=== PATIENT | male | born 1955 | race Asian ===

== ENCOUNTER 2017-05-11 05:23 | Inpatient (IN) | payer OTHER ==
[2017-05-11] VITALS (19 sets, daily range): BP systolic 118–170; BP diastolic 74–100
[~2017-05-11] VITALS: Ht 157.5 cm; Wt 62.6 kg
[2017-05-11] MEDS ORDERED: DONEPEZIL HCL10 M2 ORAL (06:22)
[2017-05-11] MEDS ORDERED: ASPIRIN81 MG ORAL (06:22)
[2017-05-11] MEDS ORDERED: ATORVASTATIN CA20 MG ORAL (06:22)
[2017-05-11] MEDS ORDERED: NAMENDA5 MG ORAL (06:22)
[2017-05-11] MEDS ORDERED: ceFAZolin sod 1 GM in NS 55 ML IVPB ONE (07:00)
[2017-05-11] MEDS ORDERED: Zemuron 50mg/5ml Inj IV ONE (07:30)
[2017-05-11] MEDS ORDERED: ProvayBlue 5mg/ml 10ml amp INJ ONE (07:30)
[2017-05-11] MEDS ORDERED: fentaNYL 100 mcg/2 mL IV ONE (07:30)
[2017-05-11] MEDS ORDERED: Propofol 200mg/20ml IV ONE (07:30)
[2017-05-11] MEDS ORDERED: LR 1000ml ONE (07:30)
[2017-05-11] MEDS ORDERED: Midazolam 2mg/2ml Inj ONE (07:30)
[2017-05-11] MEDS ORDERED: Bupivacaine 0.5% Inj 30 ml vial INJ ONE (07:31)
[2017-05-11] MEDS ORDERED: Surgicel 4in x 8in TOPIC ONE (07:31)
--- NOTE | 2017-05-11 08:10 | Pre-Procedure Note/Attestation ---
Pre-Procedure Note/Attestation Complete Prior to Procedure Planned Procedure: not applicable Procedure Narrative: Laparoscopic radical prostatectomy Indications for Procedure Pre-Operative Diagnosis: prostate cancer Attestation I attest that I discussed the nature of the procedure; its benefits; risks and complications; and alternatives (and the risks and benefits of such alternatives ), prior to the procedure, with the patient (or the patient's legal customer operations representative). I attest that, if there was a reasonable possibility of needing a blood transfusion, the patient (or the patient's legal customer operations representative) was given the [facility] standardized written summary, pursuant to the Roger [place] Blood Safety Act ([place] Health and Safety Code # 1645, as amended). I attest that I re-evaluated the patient just prior to the surgery and that there has been no change in the patient's H&P, except as documented below: Toi Desai MD May 11, 2017 08:10
[2017-05-11] MEDS ORDERED: NS Irrig 1000ml IRRIG ONE (08:22)
--- NOTE | 2017-05-11 09:12 | Anethesia Preoperative Eval ---
Anesthesia Pre-op PMH/ROS General Date of Evaluation: May 11, 2017 Time of Evaluation: 07:00 Anesthesiologist: [email or web address] ASA Score: ASA 2 Mallampati Score Class I : Soft palate, uvula, fauces, pillars visible Class II: Soft palate, uvula, fauces visible Class III: Soft palate, base of uvula visible Class IV: Only hard plate visible Mallampati Classification: Class I Allergies: Coded Allergies: No Known Allergies (Unverified , 05/10/17) Anesthesia Pre-op Phys. Exam Physician Exam Last Vital Signs Date Time Temp Pulse Resp B/P (MAP) Pulse Ox O2 Delivery O2 Flow Rate FiO2 05/11/17 06:08 97.6 68 18 138/87 98 Room Air Airway Exam Mallampati Score: Class I Jairo Hameed MD May 11, 2017 09:12
[2017-05-11] MEDS ORDERED: Hydromorphone 0.5mg/0.5ml inj IVP PRN ×3 (09:15→17:30)
[2017-05-11] MEDS ORDERED: fentaNYL 100 mcg/2 mL IV PRN (09:15)
--- NOTE | 2017-05-11 10:06 | Brief Operative Note ---
Immediate Post Operative Note Operative Note Pre-op Diagnosis: prostate cancer Procedure: Laparoscopic Radical Prostatectomy Post-op Diagnosis: same Post-op Diagnosis: same as pre-op Surgeon: Dane desai Mounter Automatic: Syed Ozuna Anesthesia: general Specimen: yes Complications: none Condition: stable Fluids: 500 Estimated Blood Loss: minimal Implant(s) used?: No Toi Desai MD May 11, 2017 10:06
[2017-05-11] MEDS ORDERED: Norco 5mg/325mg tab ORAL PRN (10:15)
[2017-05-11] MEDS ORDERED: HYDROmorphone 1mg/ml Carpuject IVP PRN (10:15)
[2017-05-11] MEDS ORDERED: Ketorolac 30mg Inj IM PRN ×2 (10:15→17:30)
--- NOTE | 2017-05-11 10:36 | Immediate Post-Op Evaluation ---
Immediate Post-Op Evalulation Immediate Post-Op Evalulation Procedure: lap prostatecctomy Date of Evaluation: May 11, 2017 Time of Evaluation: 10:36 Nausea: No Vomiting: No Given Within 1 Hr of Incision: Yes Jairo Hameed MD May 11, 2017 10:36
[2017-05-11 11:37] LABS: BASOPHILS % (AUTO) 0.7 % (0.0-2.0); EOSINOPHILS % (AUTO) 0.5 % (0.0-3.0); MEAN CORPUSCULAR HGB CONC 33.3 G/DL (32.0-36.0); MEAN CORPUSCULAR VOLUME 93 FL (80-99); MEAN PLATELET VOLUME 6.6 FL (6.5-10.1); MONOCYTES % (AUTO) 4.5 % (1.0-10.0); NEUTROPHILS % (AUTO) 75.4 % (45.0-75.0); PLATELET COUNT 323 K/UL (150-450); RED BLOOD COUNT 5.09 M/UL (4.70-6.10); RED CELL DISTRIBUTION WIDTH 12.1 % (11.6-14.8); WHITE BLOOD COUNT 17.5 K/UL (4.8-10.8)
[2017-05-11 11:41] LABS: ANION GAP 7 mmol/L (5-15); CALCIUM 8.6 MG/DL (8.5-10.1); CARBON DIOXIDE 29 MMOL/L (21-32); CHLORIDE 106 MMOL/L (98-107); GLOMERULAR FILTRATION RATE > 60 mL/min (>60); POTASSIUM 3.6 MMOL/L (3.5-5.1); SODIUM 142 MMOL/L (136-145)
--- NOTE | 2017-05-11 15:00 | Operative Note - Dictated ---
DATE OF OPERATION: 05/11/2017 PREOPERATIVE DIAGNOSIS: Prostate cancer. POSTOPERATIVE DIAGNOSIS: Prostate cancer. OPERATION: Laparoscopic radical retropubic prostatectomy. SURGEON: Toi Desai M.D. CHASSIS INSPECTOR: Syed Ozuna M.D. FINDINGS: Enlarged prostate with prostate cancer. INDICATION FOR SURGERY: The patient was diagnosed with prostate cancer on prostate needle biopsy. Treatment options were explained to him in great length including all potential complications. He signed a consent. DESCRIPTION OF PROCEDURE: He was brought to the operating room, placed in the supine position, prepped and draped in standard fashion under general anesthesia. Veress needle was placed at the umbilicus. Pneumoperitoneum was created to 15 mmHg. Five trocars, two 12s and three 5s were placed in the standard position. Dissection started behind the bladder mobilizing seminal vesicles and vas deferens. fascia was opened. After that dissection was carried anteriorly bladder from the pubis. Using Harmonic Scalpel, endopelvic fascia was opened and using Endo-CHERRY dorsal venous complex was transected. After that blood neck sparing technique was used to separate the bladder from the prostate preserving bladder neck and prostate was removed preserving both neurovascular bundles on both sides. After the prostate was removed, anastomosis was created between the urethra and the bladder using running 2-0 Monocryl suture double-armed and watertight anastomosis was created and bladder was irrigated. No evidence of leak. Betancourt catheter was left indwelling with 20 mL in the balloon. Estimated blood loss was approximately 50 mL. Prostate specimen was removed for pathologic examination. The FloSeal was placed around the anastomosis and the lateral bundles. Sponge count and instrument count was correct. The trocars and specimen was removed and wound was closed in multiple layers. Marisela for the skin. The patient tolerated procedure well. Toi Desai M.D. DR: Monica JOB#: [id number] CC:
--- NOTE | 2017-05-11 15:02 | History and Physical ---
History of Present Illness General Date patient seen: May 11, 2017 Reason for Hospitalization: prostectomy Present Illness HPI 61 year old male with hx of prostate Cancer, depression, dementia, admitted for Laparoscopic Radical Prostatectomy. Pt tolerated the procedure well and admitted to floor for post op care. Allergies: Coded Allergies: No Known Allergies (Unverified , 05/10/17) Medication History Scheduled Aspirin* (Aspirin*), 81 MG ORAL DAILY, (Reported) Atorvastatin Calcium* (Atorvastatin Calcium*), 20 MG ORAL BEDTIME, (Reported) Donepezil Hcl* (Donepezil Hcl*), 10 MG ORAL DAILY, (Reported) Memantine Hcl* (Namenda*), 5 MG ORAL DAILY, (Reported) Patient History Healthcare decision maker JIM GOLDEN - Resuscitation status Full Code Advanced Directive on File No Past Medical/Surgical History Past Medical/Surgical History: (1) Prostate cancer (2) Depression (3) Dementia (4) prostate can Review of Systems All Other Systems: negative except mentioned in HPI Physical Exam General Appearance: WD/WN Lines, tubes and drains: peripheral HEENT: normocephalic, atraumatic Neck: non-tender, supple Respiratory/Chest: chest wall non-tender, lungs clear Breasts: no masses Cardiovascular/Chest: normal peripheral pulses, regular rhythm, regularly irregular, no JVD Last 24 Hour Vital Signs Date Time Temp Pulse Resp B/P (MAP) Pulse Ox O2 Delivery O2 Flow Rate FiO2 05/11/17 13:30 97.0 87 19 130/81 100 Nasal Cannula 3.0 05/11/17 12:50 Simple Mask 6.0 40 05/11/17 12:30 98.1 86 20 143/89 100 Nasal Cannula 3.0 05/11/17 12:25 86 19 143/87 100 Nasal Cannula 3.0 05/11/17 12:15 88 21 159/97 100 Nasal Cannula 3.0 05/11/17 12:10 91 19 164/91 100 Simple Mask 6.0 05/11/17 12:05 89 17 166/94 100 Simple Mask 6.0 05/11/17 11:50 86 18 170/99 100 Simple Mask 6.0 05/11/17 11:45 99 05/11/17 11:35 88 12 146/96 100 Mechanical Ventilator 50 05/11/17 11:20 95 28 160/100 100 Mechanical Ventilator 50 05/11/17 11:05 84 26 157/93 100 Mechanical Ventilator 50 05/11/17 10:55 83 19 155/95 100 Mechanical Ventilator 50 05/11/17 10:45 82 21 159/92 100 Mechanical Ventilator 50 05/11/17 10:40 83 17 50 05/11/17 10:40 80 20 159/91 100 Mechanical Ventilator 50 05/11/17 10:35 97.1 78 20 147/87 100 Mechanical Ventilator 50 05/11/17 10:35 50 05/11/17 06:08 97.6 68 18 138/87 98 Room Air Intake and Output 05/11/17 05/12/17 19:00 07:00 Intake Total 700 ml Output Total 1720 ml Balance -1020 ml Intake IV Total 700 ml Output Urine Total 1700 ml Estimated Blood Loss 20 ml Laboratory Tests Test 05/11/17 11:20 White Blood Count 17.5 K/UL (4.8-10.8) H Red Blood Count 5.09 M/UL (4.70-6.10) Hemoglobin 15.8 G/DL (14.2-18.0) Hematocrit 47.5 % (42.0-52.0) Mean Corpuscular Volume 93 FL (80-99) Mean Corpuscular Hemoglobin 31.0 PG (27.0-31.0) Mean Corpuscular Hemoglobin Concent 33.3 G/DL (32.0-36.0) Red Cell Distribution Width 12.1 % (11.6-14.8) Platelet Count 323 K/UL (150-450) Mean Platelet Volume 6.6 FL (6.5-10.1) Neutrophils (%) (Auto) 75.4 % (45.0-75.0) H Lymphocytes (%) (Auto) 19.0 % (20.0-45.0) L Monocytes (%) (Auto) 4.5 % (1.0-10.0) Eosinophils (%) (Auto) 0.5 % (0.0-3.0) Basophils (%) (Auto) 0.7 % (0.0-2.0) Sodium Level 142 MMOL/L (136-145) Potassium Level 3.6 MMOL/L (3.5-5.1) Chloride Level 106 MMOL/L (98-107) Carbon Dioxide Level 29 MMOL/L (21-32) Anion Gap 7 mmol/L (5-15) Blood Urea Nitrogen 17 mg/dL (7-18) Creatinine 1.0 MG/DL (0.55-1.30) Estimat Glomerular Filtration Rate > 60 mL/min (>60) Glucose Level 199 MG/DL (74-106) H Calcium Level 8.6 MG/DL (8.5-10.1) Height (Feet): 5 Height (Inches): 2.00 Weight (Pounds): 138 Medications Current Medications Medications (Trade) Dose Ordered Sig/Crystal Route PRN Reason Start Time Stop Time Status Last Admin Dose Admin Acetaminophen (Tylenol) 650 mg Q4H PRN ORAL FEVER,T>101 05/11/17 10:15 06/10/17 10:14 Acetaminophen (Tylenol) 650 mg Q6H PRN ORAL Mild Pain (Pain Scale 1-3) 05/11/17 10:15 06/10/17 10:14 Acetaminophen/ Hydrocodone Bitart ([place] 5/325) 1 tab Q4H PRN ORAL Moderate Pain (Pain Scale 4-6) 05/11/17 10:15 05/18/17 10:14 Cefazolin Sodium 1 gm/Dextrose 55 ml @ 110 mls/hr Q8H IV 05/11/17 15:00 05/11/17 23:29 Dextrose/ Electrolytes 1,000 ml @ 100 mls/hr Q10H IV 05/11/17 14:30 06/10/17 14:29 Hydromorphone HCl (Dilaudid) 1 mg Q3H PRN IVP pain score 4-6 05/11/17 10:15 05/18/17 10:14 Ketorolac Tromethamine (Toradol 30mg) 30 mg Q6H PRN IM For Pain 05/11/17 10:15 05/16/17 10:14 Ondansetron HCl (Zofran) 4 mg Q6H PRN IVP Nausea & Vomiting 05/11/17 10:15 06/10/17 10:14 Temazepam (Restoril) 7.5 mg DAILYPRN PRN ORAL Insomnia 05/11/17 10:15 05/18/17 10:14 Assessment/Plan Problem List: (1) S/P prostatectomy ICD Codes: Z90.79 - Acquired absence of other genital organ(s) SNOMED: 29993281, 76820950, 036901126 (2) Prostate cancer ICD Codes: C61 - Malignant neoplasm of prostate SNOMED: 886488199 (3) Leukocytosis ICD Codes: D72.829 - Elevated white blood cell count, unspecified SNOMED: 556770971, 867764528 (4) Depression ICD Codes: F32.9 - Major depressive disorder, single episode, unspecified SNOMED: 68987243 (5) Dementia ICD Codes: F03.90 - Unspecified dementia without behavioral disturbance SNOMED: 75832282 Assessment/Plan post op care symptomatic treatment iv fluids advance diet as tolerated ERLIN PARRA May 11, 2017 15:02
[2017-05-11] MEDS: D5 1/2NS w/KCl 20mEq 1,000 ML IV SCH (15:16)
[2017-05-11] MEDS: ceFAZolin sod 1 GM in D5W 55 ML IV SCH ×2 (15:52→22:50)
[2017-05-12 04:00] VITALS: BP 124/79
[2017-05-12] MEDS: D5 1/2NS w/KCl 20mEq 1,000 ML IV SCH ×3 (04:56→23:24)
[2017-05-12] MEDS ORDERED: Sterile Water Irrig 1000ml IRRIG ONE (07:30)
[2017-05-12] MEDS ORDERED: NS Irrig 1000ml ONE (07:30)
[2017-05-12] MEDS ORDERED: LR 1000ml ONE (07:30)
[2017-05-12 07:58] LABS: ANION GAP 4 mmol/L (5-15); CALCIUM 8.4 MG/DL (8.5-10.1); CARBON DIOXIDE 32 MMOL/L (21-32); CHLORIDE 106 MMOL/L (98-107); CREATININE 0.8 MG/DL (0.55-1.30); GLOMERULAR FILTRATION RATE > 60 mL/min (>60); POTASSIUM 3.6 MMOL/L (3.5-5.1); SODIUM 142 MMOL/L (136-145)
[2017-05-12 08:00] LABS: BASOPHILS % (AUTO) 0.8 % (0.0-2.0); EOSINOPHILS % (AUTO) 0.2 % (0.0-3.0); LYMPHOCYTES % (AUTO) 9.4 % (20.0-45.0); MEAN CORPUSCULAR HEMOGLOBIN 31.6 PG (27.0-31.0); MEAN CORPUSCULAR VOLUME 93 FL (80-99); MEAN PLATELET VOLUME 7.5 FL (6.5-10.1); MONOCYTES % (AUTO) 7.6 % (1.0-10.0); NEUTROPHILS % (AUTO) 82.1 % (45.0-75.0); PLATELET COUNT 225 K/UL (150-450); RED BLOOD COUNT 4.31 M/UL (4.70-6.10); WHITE BLOOD COUNT 12.2 K/UL (4.8-10.8)
[2017-05-12] MEDS: Memantine 5 MG TAB ORAL SCH (08:43)
[2017-05-12] MEDS: Donepezil 10mg tab ORAL SCH (08:43)
[2017-05-12 08:58] VITALS: BP 154/87
[2017-05-12] MEDS ORDERED: DiphenhydrAMINE 50mg/ml Inj IVP PRN (09:30)
[2017-05-12 11:49] VITALS: BP 141/77
--- NOTE | 2017-05-12 12:33 | 48 Hour Post Anesthesia Eval ---
Post Anesthesia Evaluation Procedure: lap prostatecctomy Date of Evaluation: May 12, 2017 Time of Evaluation: 09:30 Blood Pressure Systolic: 108 0: 76 Pulse Rate: 68 Respiratory Rate: 20 Temperature (Fahrenheit): 97.6 O2 Sat by Pulse Oximetry: 98 Airway: patent Nausea: No Vomiting: No Pain Intensity: 3 Hydration Status: adequate Cardiopulmonary Status: stable Mental Status/LOC: patient returned to baseline Follow-up Care/Observations: n/a Post-Anesthesia Complications: none Follow-up care needed: N/A FLOWER MARRUFO M.D. May 12, 2017 12:33
[2017-05-12] MEDS ORDERED: Tubing IV Secondary IV ONE (13:27)
[2017-05-12] MEDS ORDERED: Morphine Sulfate 4mg/ml Inj IVP PRN (13:45)
--- NOTE | 2017-05-12 14:39 | Pulmonology Progress Note ---
Assessment/Plan Problems: (1) S/P prostatectomy (2) Prostate cancer (3) Leukocytosis (4) Depression (5) Dementia Assessment/Plan increase pain meds check electrolytes wbc decreasing pt/ot dc planning soon. Subjective ROS Limited/Unobtainable: No Interval Events: c/o pain in lower abdomen area Allergies: Coded Allergies: No Known Allergies (Unverified , 05/10/17) Objective Last 24 Hour Vital Signs Date Time Temp Pulse Resp B/P (MAP) Pulse Ox O2 Delivery O2 Flow Rate FiO2 05/12/17 12:33 68 20 98 05/12/17 11:49 98.0 80 20 141/77 93 05/12/17 09:10 98.4 05/12/17 08:58 98.4 86 21 154/87 96 05/12/17 04:00 97.2 86 18 124/79 95 Room Air 3.0 40 05/11/17 20:00 98.2 83 18 131/74 97 Room Air 05/11/17 16:00 98.2 84 18 132/84 100 Nasal Cannula 3.0 General Appearance: WD/WN HEENT: normocephalic, atraumatic Respiratory/Chest: chest wall non-tender, lungs clear Cardiovascular: normal peripheral pulses, normal rate, regular rhythm Abdomen: normal bowel sounds, soft, non tender, no organomegaly Genitourinary: normal external genitalia Extremities: no clubbing Skin: no rash Neurologic/Psychiatric: meal packer II-XII grossly normal Lymphatic: no neck adenopathy Laboratory Tests 05/12/17 06:50: White Blood Count 12.2H, Red Blood Count 4.31L, Hemoglobin 13.6L, Hematocrit 40.1L, Mean Corpuscular Volume 93, Mean Corpuscular Hemoglobin 31.6H, Mean Corpuscular Hemoglobin Concent 34.0, Red Cell Distribution Width 12.0, Platelet Count 225, Mean Platelet Volume 7.5, Neutrophils (%) (Auto) 82.1H, Lymphocytes ( %) (Auto) 9.4L, Monocytes (%) (Auto) 7.6, Eosinophils (%) (Auto) 0.2, Basophils (%) (Auto) 0.8, Sodium Level 142, Potassium Level 3.6, Chloride Level 106, Carbon Dioxide Level 32, Anion Gap 4L, Blood Urea Nitrogen 13, Creatinine 0.8, Estimat Glomerular Filtration Rate > 60, Glucose Level 128H, Calcium Level 8.4L Current Medications Medications (Trade) Dose Ordered Sig/Crystal Route PRN Reason Start Time Stop Time Status Last Admin Dose Admin Acetaminophen (Tylenol) 650 mg Q4H PRN ORAL FEVER,T>101 05/11/17 10:15 06/10/17 10:14 Acetaminophen (Tylenol) 650 mg Q6H PRN ORAL Mild Pain (Pain Scale 1-3) 05/11/17 10:15 06/10/17 10:14 Acetaminophen/ Hydrocodone Bitart ([place] 5/325) 1 tab Q4H PRN ORAL Moderate Pain (Pain Scale 4-6) 05/11/17 10:15 05/18/17 10:14 05/11/17 15:19 Dextrose/ Electrolytes 1,000 ml @ 100 mls/hr Q10H IV 05/11/17 14:30 06/10/17 14:29 05/12/17 04:56 Diphenhydramine HCl (Benadryl) 25 mg Q6H PRN IVP Itching 05/12/17 09:30 06/11/17 09:29 05/12/17 10:21 Donepezil HCl (Aricept) 10 mg DAILY ORAL 05/12/17 09:00 06/11/17 08:59 05/12/17 08:43 Hydromorphone HCl (Dilaudid) 1 mg Q3H PRN IVP pain score 4-6 05/11/17 17:30 05/18/17 17:29 Hydromorphone HCl (Dilaudid) 2 mg Q3H PRN IVP Severe Pain (7-10) 05/11/17 17:20 05/18/17 17:19 05/12/17 12:12 Ketorolac Tromethamine (Toradol 30mg) 30 mg Q6H PRN IM Severe Breakthrough Pain (>7) 05/11/17 17:30 05/16/17 17:29 Memantine (Namenda) 5 mg DAILY ORAL 05/12/17 09:00 06/11/17 08:59 05/12/17 08:43 Morphine Sulfate (Morphine Sulfate) 3 mg Q2H PRN IVP Mild Pain (Pain Scale 1-3) 05/12/17 13:45 05/19/17 13:44 Ondansetron HCl (Zofran) 4 mg Q6H PRN IVP Nausea & Vomiting 05/11/17 10:15 06/10/17 10:14 Temazepam (Restoril) 7.5 mg DAILYPRN PRN ORAL Insomnia 05/11/17 10:15 05/18/17 10:14 ERLIN PARRA May 12, 2017 14:39
[2017-05-12] MEDS: Ketorolac 30mg Inj IM SCH ×2 (15:12→23:22)
[2017-05-12 15:52] VITALS: BP 133/71
[2017-05-12 20:23] VITALS: BP 150/90
[2017-05-13] VITALS (7 sets, daily range): BP systolic 122–166; BP diastolic 80–92
[2017-05-13 05:48] LABS: BASOPHILS % (AUTO) 0.7 % (0.0-2.0); EOSINOPHILS % (AUTO) 0.2 % (0.0-3.0); LYMPHOCYTES % (AUTO) 11.2 % (20.0-45.0); MEAN CORPUSCULAR VOLUME 94 FL (80-99); MEAN PLATELET VOLUME 6.6 FL (6.5-10.1); MONOCYTES % (AUTO) 8.6 % (1.0-10.0); NEUTROPHILS % (AUTO) 79.4 % (45.0-75.0); PLATELET COUNT 230 K/UL (150-450); RED BLOOD COUNT 4.19 M/UL (4.70-6.10); RED CELL DISTRIBUTION WIDTH 11.8 % (11.6-14.8); WHITE BLOOD COUNT 10.4 K/UL (4.8-10.8)
[2017-05-13 06:15] LABS: ALANINE AMINOTRANSFERASE 27 U/L (12-78); ALBUMIN/GLOBULIN RATIO 0.9 (1.0-2.7); ANION GAP 5 mmol/L (5-15); ASPARTATE AMINO TRANSFERASE 26 U/L (15-37); CALCIUM 8.4 MG/DL (8.5-10.1); CARBON DIOXIDE 30 MMOL/L (21-32); CHLORIDE 106 MMOL/L (98-107); CREATININE 0.8 MG/DL (0.55-1.30); GLOMERULAR FILTRATION RATE > 60 mL/min (>60); MAGNESIUM 2.2 MG/DL (1.8-2.4); PHOSPHORUS 2.5 MG/DL (2.5-4.9); POTASSIUM 3.9 MMOL/L (3.5-5.1); SODIUM 141 MMOL/L (136-145); TOTAL PROTEIN 6.2 G/DL (6.4-8.2)
[2017-05-13] MEDS: D5 1/2NS w/KCl 20mEq 1,000 ML IV SCH ×3 (06:30→16:10)
[2017-05-13] MEDS: Ketorolac 30mg Inj IM SCH ×3 (06:59→21:24)
--- NOTE | 2017-05-13 07:35 | Pulmonology Progress Note ---
Assessment/Plan Assessment/Plan ASSESSMENT Prostate Ca s/p laparoscopic radical retropubic prostatectomy leukocytosis dementia depression likely protein calorie malnutrition PLAN OF CARE MS floor IVF leukocytosis resolved monitor UO monitor HH Pain management bowel regimen PT/OT continue Aricept and Namenda dietary eval advance diet as tolerated case discussed and evaluated by supervising physician Subjective Allergies: Coded Allergies: No Known Allergies (Unverified , 05/10/17) Subjective leukocytosis resolved, afebrile not eating ( on liquid diet) urine output dark brown HH stable Objective Last 24 Hour Vital Signs Date Time Temp Pulse Resp B/P (MAP) Pulse Ox O2 Delivery O2 Flow Rate FiO2 05/13/17 04:00 98.8 80 16 142/82 92 05/13/17 00:41 Nasal Cannula 2.0 28 05/13/17 00:18 99.0 92 21 160/88 92 05/12/17 20:23 99.5 97 20 150/90 85 05/12/17 17:20 98.1 05/12/17 15:52 98.1 86 20 133/71 98 05/12/17 12:40 97.6 05/12/17 12:33 68 20 98 05/12/17 11:49 98.0 80 20 141/77 93 05/12/17 08:58 98.4 86 21 154/87 96 General Appearance: no acute distress HEENT: normocephalic, atraumatic, anicteric, mucous membranes moist Respiratory/Chest: lungs clear, no respiratory distress Cardiovascular: normal peripheral pulses, normal rate, no JVD Abdomen: normal bowel sounds, soft, non tender, non distended Genitourinary: other - Betancourt with dark bronw urine Neurologic/Psychiatric: alert, responsive Musculoskeletal: normal muscle bulk Laboratory Tests 05/13/17 04:45: White Blood Count 10.4, Red Blood Count 4.19L, Hemoglobin 13.0L, Hematocrit 39.3L, Mean Corpuscular Volume 94, Mean Corpuscular Hemoglobin 31.0, Mean Corpuscular Hemoglobin Concent 33.0, Red Cell Distribution Width 11.8, Platelet Count 230, Mean Platelet Volume 6.6, Neutrophils (%) (Auto) 79.4H, Lymphocytes ( %) (Auto) 11.2L, Monocytes (%) (Auto) 8.6, Eosinophils (%) (Auto) 0.2, Basophils (%) (Auto) 0.7, Sodium Level 141, Potassium Level 3.9, Chloride Level 106, Carbon Dioxide Level 30, Anion Gap 5, Blood Urea Nitrogen 16, Creatinine 0.8, Estimat Glomerular Filtration Rate > 60, Glucose Level 122H, Calcium Level 8.4L, Phosphorus Level 2.5, Magnesium Level 2.2, Total Bilirubin 0.6, Aspartate Amino Transf (AST/SGOT) 26, Alanine Aminotransferase (ALT/SGPT) 27, Alkaline Phosphatase 57, Total Protein 6.2L, Albumin 3.0L, Globulin 3.2, Albumin/ Globulin Ratio 0.9L Current Medications Medications (Trade) Dose Ordered Sig/Crystal Route PRN Reason Start Time Stop Time Status Last Admin Dose Admin Acetaminophen (Tylenol) 650 mg Q4H PRN ORAL FEVER,T>101 05/11/17 10:15 06/10/17 10:14 Acetaminophen (Tylenol) 650 mg Q6H PRN ORAL Mild Pain (Pain Scale 1-3) 05/11/17 10:15 06/10/17 10:14 Acetaminophen/ Hydrocodone Bitart ([place] 5/325) 1 tab Q4H PRN ORAL Moderate Pain (Pain Scale 4-6) 05/11/17 10:15 05/18/17 10:14 05/11/17 15:19 Dextrose/ Electrolytes 1,000 ml @ 100 mls/hr Q10H IV 05/11/17 14:30 06/10/17 14:29 05/12/17 23:24 Diphenhydramine HCl (Benadryl) 25 mg Q6H PRN IVP Itching 05/12/17 09:30 06/11/17 09:29 05/12/17 10:21 Donepezil HCl (Aricept) 10 mg DAILY ORAL 05/12/17 09:00 06/11/17 08:59 05/12/17 08:43 Hydromorphone HCl (Dilaudid) 1 mg Q3H PRN IVP pain score 4-6 05/11/17 17:30 05/18/17 17:29 Hydromorphone HCl (Dilaudid) 2 mg Q3H PRN IVP Severe Pain (7-10) 05/11/17 17:20 05/18/17 17:19 05/13/17 02:59 Ketorolac Tromethamine (Toradol 30mg) 30 mg EVERY 8 HOURS IM 05/12/17 15:00 05/16/17 14:59 05/13/17 06:59 Memantine (Namenda) 5 mg DAILY ORAL 05/12/17 09:00 06/11/17 08:59 05/12/17 08:43 Morphine Sulfate (Morphine Sulfate) 3 mg Q2H PRN IVP Mild Pain (Pain Scale 1-3) 05/12/17 13:45 05/19/17 13:44 Ondansetron HCl (Zofran) 4 mg Q6H PRN IVP Nausea & Vomiting 05/11/17 10:15 06/10/17 10:14 Temazepam (Restoril) 7.5 mg DAILYPRN PRN ORAL Insomnia 05/11/17 10:15 05/18/17 10:14 [facility] HospitalSt[facility] Louis NP May 13, 2017 07:35
[2017-05-13] MEDS: Donepezil 10mg tab ORAL SCH (08:15)
[2017-05-13] MEDS: Memantine 5 MG TAB ORAL SCH (08:15)
--- NOTE | 2017-05-13 14:23 | Diagnostic Imaging Report ---
Indication: Abdominal pain leukocytosis, history of prostatectomy Technique: Spiral acquisitions obtained through the abdomen and pelvis. Patient given oral contrast. No IV contrast utilized, per referring physician request.. Multiplanar reconstructions were generated. Total dose length product 743 mGycm. CTDIvol(s) 13 mGy. Dose reduction achieved using automated exposure control Comparison: None Findings: Patient is status post prostatectomy 2 days earlier. Soft tissue gas is seen within the soft tissues just inside the levator sling, and also within and just outside the right obturator foramen. There is also a pneumoperitoneum, presumably related to the recent laparoscopic surgery. Gas bubbles are seen within the mesenteric fat and bilateral inguinal canals as well as left groin. A few gas bubbles are seen in the right lower chest wall as well. There is edema of the presacral fat. No pelvic fluid collections are evident. No evidence of significant pelvic hematoma. Surgical skin flores are seen in the upper pelvic mcf[place]land bilaterally and infraumbilical midline. The appendix is normal. Contrast is seen throughout most of the small bowel, but does not quite reach the terminal ileum. No small bowel wall thickening. Small bowel loops are somewhat prominent but not frankly dilated. The distal esophagus is unremarkable. The stomach is mildly distended. There is possible wall thickening of the gastric antrum, although this could be an artifact of under distention The lack of IV contrast limits assessment of the solid organs. The liver, gallbladder, bile ducts, pancreas, spleen, adrenals, right kidney are unremarkable. The left kidney demonstrates a 14 mm interpolar region cyst. No renal ureteral calculi, hydronephrosis, or hydroureter. The bladder is empty, contains a Betancourt catheter. Air within the bladder is presumably related to the Betancourt catheterization. No pelvic mass or adenopathy. There is trace left pleural fluid. There is considerable consolidation and atelectasis of most of the left lower lobe. There is also considerable dependent atelectasis of a significant portion of the right lower lobe. The bones demonstrate degenerative spondylosis changes. Impression: Post surgical changes, status post prostatectomy. No radiographic evidence of complication or unusual features Pneumoperitoneum, presumably related to the above Mild nonspecific prominence of small bowel loops, but no evidence of small bowel obstruction or significant ileus Possible wall thickening of the gastric antrum. Most likely artifact of under distention, gastritis or peptic ulcer disease not completely excludable Mild gastric distention, but no evidence of obstructive pathology, therefore nonspecific Trace left pleural effusion. Considerable consolidation and atelectasis involving most left lower lobe. There is atelectasis of a significant portion of the right lower lobe Other findings as noted, including degenerative spondylosis, Betancourt catheter, left renal cyst The CT scanner at [facility] is accredited by the [employer] and the scans are performed using protocols designed to limit radiation exposure to as low as reasonably achievable to attain images of sufficient resolution adequate for diagnostic evaluation.
--- NOTE | 2017-05-13 17:09 | Diagnostic Imaging Report ---
Indication: COUGH Technique: One view of the chest Comparison: none Findings: Free air is seen under both hemidiaphragms. There is retrocardiac consolidation. This is also demonstrated on recent CT scan. Upper lung kirby are clear. Heart is borderline enlarged. Impression: Pneumoperitoneum. Not unexpected, given history of recent operative scalp at surgery Retrocardiac consolidation, also described on recent CT scan Borderline cardiomegaly
[2017-05-14 00:14] VITALS: BP 129/78
[2017-05-14] MEDS: D5 1/2NS w/KCl 20mEq 1,000 ML IV SCH (02:01)
[2017-05-14 04:00] VITALS: BP 150/84
[2017-05-14] MEDS: Ketorolac 30mg Inj IM SCH (06:00)
[2017-05-14 08:00] VITALS: BP 148/85
[2017-05-14 08:05] LABS: BASOPHILS % (AUTO) 0.6 % (0.0-2.0); EOSINOPHILS % (AUTO) 1.1 % (0.0-3.0); LYMPHOCYTES % (AUTO) 15.6 % (20.0-45.0); MEAN CORPUSCULAR HEMOGLOBIN 30.9 PG (27.0-31.0); MEAN CORPUSCULAR VOLUME 94 FL (80-99); MEAN PLATELET VOLUME 6.5 FL (6.5-10.1); MONOCYTES % (AUTO) 8.3 % (1.0-10.0); NEUTROPHILS % (AUTO) 74.4 % (45.0-75.0); PLATELET COUNT 195 K/UL (150-450); RED BLOOD COUNT 3.75 M/UL (4.70-6.10); RED CELL DISTRIBUTION WIDTH 11.7 % (11.6-14.8); WHITE BLOOD COUNT 7.6 K/UL (4.8-10.8)
[2017-05-14 08:22] LABS: ANION GAP 4 mmol/L (5-15); CALCIUM 8.6 MG/DL (8.5-10.1); CARBON DIOXIDE 30 MMOL/L (21-32); CHLORIDE 107 MMOL/L (98-107); CREATININE 0.7 MG/DL (0.55-1.30); GLOMERULAR FILTRATION RATE > 60 mL/min (>60); POTASSIUM 3.9 MMOL/L (3.5-5.1); SODIUM 141 MMOL/L (136-145)
[2017-05-14] MEDS: Donepezil 10mg tab ORAL SCH (09:15)
[2017-05-14] MEDS: Memantine 5 MG TAB ORAL SCH (09:15)
--- NOTE | 2017-05-14 09:55 | Pulmonology Progress Note ---
Assessment/Plan Assessment/Plan ASSESSMENT Prostate Ca s/p laparoscopic radical retropubic prostatectomy leukocytosis -resolved dementia depression likely protein calorie malnutrition PLAN OF CARE MS floor IVF leukocytosis resolved monitor UO , cleared monitor HH , stable Pain management bowel regimen PT/OT continue Aricept and Namenda dietary eval diet advanced, dc with surgeon OK for dc with Betancourt ( change to leg bag), scripts provided ( as discussed with surgeon) fup with dr Desai at the office case discussed and evaluated by supervising physician Subjective Allergies: Coded Allergies: No Known Allergies (Unverified , 05/10/17) Subjective leukocytosis resolved, afebrile tolerates diet urine output cleared HH stable Objective Last 24 Hour Vital Signs Date Time Temp Pulse Resp B/P (MAP) Pulse Ox O2 Delivery O2 Flow Rate FiO2 05/14/17 08:00 97.8 73 18 148/85 95 Room Air 05/14/17 04:00 98.9 75 18 150/84 93 05/14/17 00:14 98.2 70 18 129/78 91 05/13/17 21:54 98.4 05/13/17 20:20 98.4 77 18 122/80 92 05/13/17 20:19 Room Air 05/13/17 20:18 93 Room Air 05/13/17 17:30 76 18 138/80 94 Room Air 05/13/17 16:45 98.7 77 18 166/89 98 Room Air 05/13/17 16:08 166/89 05/13/17 11:58 97.7 05/13/17 11:58 97.7 87 20 165/88 92 Room Air 05/13/17 10:55 97.1 Objective General Appearance: no acute distress HEENT: normocephalic, atraumatic, anicteric, mucous membranes moist Respiratory/Chest: lungs clear, no respiratory distress Cardiovascular: normal peripheral pulses, normal rate, no JVD Abdomen: normal bowel sounds, soft, non tender, non distended Genitourinary: other - Betancourt with dark bronw urine Neurologic/Psychiatric: alert, responsive Musculoskeletal: normal muscle bulk Laboratory Tests 05/14/17 05:35: White Blood Count 7.6, Red Blood Count 3.75L, Hemoglobin 11.6L, Hematocrit 35.1L , Mean Corpuscular Volume 94, Mean Corpuscular Hemoglobin 30.9, Mean Corpuscular Hemoglobin Concent 33.0, Red Cell Distribution Width 11.7, Platelet Count 195, Mean Platelet Volume 6.5, Neutrophils (%) (Auto) 74.4, Lymphocytes (% ) (Auto) 15.6L, Monocytes (%) (Auto) 8.3, Eosinophils (%) (Auto) 1.1, Basophils (%) (Auto) 0.6, Sodium Level 141, Potassium Level 3.9, Chloride Level 107, Carbon Dioxide Level 30, Anion Gap 4L, Blood Urea Nitrogen 18, Creatinine 0.7, Estimat Glomerular Filtration Rate > 60, Glucose Level 103, Calcium Level 8.6 Current Medications Medications (Trade) Dose Ordered Sig/Crystal Route PRN Reason Start Time Stop Time Status Last Admin Dose Admin Acetaminophen (Tylenol) 650 mg Q4H PRN ORAL FEVER,T>101 05/11/17 10:15 06/10/17 10:14 05/13/17 09:56 Acetaminophen (Tylenol) 650 mg Q6H PRN ORAL Mild Pain (Pain Scale 1-3) 05/11/17 10:15 06/10/17 10:14 Acetaminophen/ Hydrocodone Bitart ([place] 5/325) 1 tab Q4H PRN ORAL Moderate Pain (Pain Scale 4-6) 05/11/17 10:15 05/18/17 10:14 05/11/17 15:19 Clonidine HCl (Catapres) 0.1 mg Q6H PRN ORAL SBP>160 05/13/17 16:00 06/12/17 15:59 05/13/17 16:08 Dextrose/ Electrolytes 1,000 ml @ 100 mls/hr Q10H IV 05/11/17 14:30 06/10/17 14:29 05/14/17 02:01 Diphenhydramine HCl (Benadryl) 25 mg Q6H PRN IVP Itching 05/12/17 09:30 06/11/17 09:29 05/12/17 10:21 Donepezil HCl (Aricept) 10 mg DAILY ORAL 05/12/17 09:00 06/11/17 08:59 05/14/17 09:15 Famotidine (Pepcid I.v.) 20 mg Q12HR IVP 05/13/17 21:00 06/12/17 20:59 05/14/17 09:15 Hydromorphone HCl (Dilaudid) 1 mg Q3H PRN IVP pain score 4-6 05/11/17 17:30 05/18/17 17:29 05/13/17 11:28 Hydromorphone HCl (Dilaudid) 2 mg Q3H PRN IVP Severe Pain (7-10) 05/11/17 17:20 05/18/17 17:19 05/13/17 08:15 Ketorolac Tromethamine (Toradol 30mg) 30 mg EVERY 8 HOURS IM 05/12/17 15:00 05/16/17 14:59 05/13/17 21:24 Memantine (Namenda) 5 mg DAILY ORAL 05/12/17 09:00 06/11/17 08:59 05/14/17 09:15 Morphine Sulfate (Morphine Sulfate) 3 mg Q2H PRN IVP Mild Pain (Pain Scale 1-3) 05/12/17 13:45 05/19/17 13:44 Ondansetron HCl (Zofran) 4 mg Q6H PRN IVP Nausea & Vomiting 05/11/17 10:15 06/10/17 10:14 05/13/17 12:56 Temazepam (Restoril) 7.5 mg DAILYPRN PRN ORAL Insomnia 05/11/17 10:15 05/18/17 10:14 [facility]Mon[facility] HospitalStacy Louis NP May 14, 2017 09:55
--- NOTE | 2017-05-14 09:56 | Discharge Instructions ---
Discharge Instructions Discharge Instructions Call MD/Return to Hospital if: dr Desai office 05/19 on Diet: regular - as toelrated Activity: as tolerated For Surgical Patients Dressing Care: keep dry and clean Contact your physician for: bleeding, pain, tenderness, redness, swelling, yellowish discharge in the op. site For Congestive Heart Failure Reminder Kris PaezStacy cameron NP May 14, 2017 09:56
[2017-05-14] MEDS ORDERED: LEVAQUIN500 MG ORAL (09:59)
[2017-05-14] MEDS ORDERED: PHENAZOPYRIDIN100 MG ORAL (09:59)
[2017-05-14] MEDS ORDERED: COLACE100 MG ORAL (09:59)
[2017-05-14] MEDS ORDERED: ACETAMINOPHEN-1 EAC1 ORAL (09:59)
--- NOTE | 2017-05-17 08:38 | Discharge Summary ---
Discharge Summary Hospital Course Date of Admission May 11, 2017 at 05:23 Date of Discharge May 14, 2017 at 11:45 Admitting Diagnosis HPI Toi Madrigal is a 61 year old male who was admitted on May 11, 2017 at 05:23 for Prostate Cancer Hospital Course dc summary #[id number] Discharge Medications New Medications: Acetaminophen With Codeine (T#3) (Tylenol #3 Tab*) Y Tab 1 TAB ORAL Q6HR, #20 TAB Docusate Sodium* (Colace*) 100 Mg Capsule 100 MG ORAL TWICE A DAY, #30 CAP Levofloxacin* (Levaquin*) 500 Mg Tablet 500 MG ORAL DAILY, #7 TAB Phenazopyridine Hcl* (Pyridium*) 100 Mg Tablet 100 MG ORAL BID PRN, #6 TAB Continued Medications: Aspirin* (Aspirin*) 81 Mg Tab.chew 81 MG ORAL DAILY, TAB Atorvastatin Calcium* (Atorvastatin Calcium*) 20 Mg Tablet 20 MG ORAL BEDTIME, TAB Donepezil Hcl* (Donepezil Hcl*) 10 Mg Tab.rapdis 10 MG ORAL DAILY, TAB Memantine Hcl* (Namenda*) 5 Mg Tablet 5 MG ORAL DAILY, TAB Discharge Condition Upon Discharge: stable Discharge Disposition Patient was discharged to Home () Discharge Diagnoses: Discharge Instructions Discharge Instructions Call MD/Return to Hospital if: dr Desai office 05/19 on Activity: as tolerated For Surgical Patients Dressing Care: keep dry and clean Contact your physician for: bleeding, pain, tenderness, redness, swelling, yellowish discharge in the op. site Kris [facility] Louis NP May 17, 2017 08:38
--- NOTE | 2017-05-17 21:45 | Discharge Summary 2 SIG ---
DATE OF ADMISSION: 05/11/2017 DATE OF DISCHARGE: 05/14/2017 REASON FOR ADMISSION: 61-year-old male with history of prostate cancer, depression, dementia was admitted for surgical intervention. The patient had subsequently undergone laparoscopic radical prostatectomy, and was admitted to medical/surgical floor for further management. HOSPITAL COURSE: The patient was initially admitted with leukocytosis. IV fluids initially provided. Leukocytosis resolved. Afebrile. Urine output was closely monitored. The patient with a Betancourt catheter and initially on the first day postop, had brown urine, which cleared subsequently on the postop day 2. Hemoglobin and hematocrit remained stable. Pain management was addressed, and pain was controlled. Bowel regimen was instituted. The patient was working with physical and occupational therapists. Aricept and Namenda were continued. Diet advanced as tolerated. Dietary evaluation requested, and nutritional supplement was subsequently added. Pathology of the prostate tissue revealed prostatic adenocarcinoma, grade III tumor involving both sides of prostate with bulk of the tumor present on the left posterior side. Seminal vesicles and vas deferens' margins were negative. No evidence of seminal vesicle involvement. Overall stage III. The patient was stable for discharge home with catheter, changed to the leg bag prior to discharge. Prescription provided. Patient and family instructed on care of Betancourt/leg bag. The patient to follow up with the surgeon on 05/19/2017 at the office. FINAL DIAGNOSES: 1. Prostatic adenocarcinoma, grade stage III. 2. Status post laparoscopic radical retropubic prostatectomy. 3. Leukocytosis, resolved. 4. Dementia. 5. Depression. 6. Likely protein-calorie malnutrition. DISCHARGE MEDICATIONS: See medication reconciliation list. Prescription provided for empiric antibiotics, stool softener, and analgesic. DISCHARGE INSTRUCTIONS: The patient to follow up with the surgeon on 05/19/2017 at the office. Toi Desai M.D. Stacy Paezrakesh N.PPaul DR: Caren JOB#: [id number] CC: ARVIND
== END 2017-05-14 11:45 | disposition home or self-care (01) | DRG 707 ==
LOC: SDSOVERFLO 05:23 → 3E 13:01
PROC: 0VT04ZZ Resection of Prostate, Percutaneous Endoscopic Approach (ICD-10-PCS; principal; 2017-05-11 07:30)
DX: C61 Malignant neoplasm of prostate (principal); E46 Unspecified protein-calorie malnutrition; F03.90 Unspecified dementia, unspecified severity, without behavioral disturbance, psychotic disturbance, mood disturbance, and anxiety; F32.9 Major depressive disorder, single episode, unspecified
CPT/HCPCS: 36415; 71010; 74176; 80048; 80053; 83735; 84100; 85025; 86850; 86900; 86901; 87081; 94002; 94003; 94150; 94760; J2250; J2405